=== PATIENT | male | born 1990 | race Caucasian/White ===

== ENCOUNTER 2021-11-07 09:23 | Emergency (ER) | payer OTHER ==
[2021-11-07 10:39] LABS: HEMOGLOBIN 15.4 gm/dl (14.0-17.5); RED BLOOD COUNT 4.83 M/UL (4.20-5.50); WHITE BLOOD COUNT 6.4 K/UL (4.5-11.0)
[2021-11-07 11:00] LABS: BUN/CREATININE RATIO 11 (0-10)
== END 2021-11-07 14:10 | disposition home or self-care (01) ==
LOC: ER1 09:23
PROVIDERS: Family Medicine
DX: R53.1 Weakness (principal); L64.9 Androgenic alopecia, unspecified; F17.200 Nicotine dependence, unspecified, uncomplicated
CPT/HCPCS: 80053; 81001; 82550; 82553; 83735; 84439; 84443; 84484; 85025; 99284